=== PATIENT | male | born 1940 | race Caucasian/White ===

== ENCOUNTER → 2017-12-21 | Emergency (ER) | payer OTHER ==
[~2017-12-21] VITALS: Ht 170.2 cm; Wt 80.3 kg
[~2017-12-21] MED LIST: ENALAPRIL MALEA20 MG; IBUPROFEN200 M1; IBUPROFEN800 MG PO; SKELAXIN800 MG PO
== END | disposition home or self-care (01) ==
LOC: ER 09:46
DX: S00.83XA Contusion of other part of head, initial encounter (principal); W22.8XXA Striking against or struck by other objects, initial encounter; Y93.89 Activity, other specified; Y92.89 Other specified places as the place of occurrence of the external cause; Y99.8 Other external cause status

== ENCOUNTER 2018-02-09 13:46 | Emergency (ER) | payer OTHER ==
[~2018-02-09] VITALS: Ht 165.1 cm; Wt 74.8 kg
[2018-02-09] MEDS ORDERED: BACLOFEN20 MG PO (14:50)
== END 2018-02-09 15:03 | disposition home or self-care (01) ==
LOC: ER 13:46
DX: M54.5 Low back pain (principal)

== ENCOUNTER → 2018-02-22 | Emergency (ER) | payer OTHER ==
[~2018-02-22] VITALS: Ht 175.3 cm; Wt 76.7 kg
[~2018-02-22] MED LIST changes: +BACLOFEN20 MG PO
== END | disposition home or self-care (01) ==
LOC: ER 13:16
DX: M54.2 Cervicalgia (principal)

== ENCOUNTER → 2018-03-08 | Emergency (ER) | payer OTHER ==
[~2018-03-08] VITALS: Ht 160 cm; Wt 76.2 kg
[~2018-03-08] MED LIST changes: +TUSSI-PRES LIQ118 ML PO
== END | disposition home or self-care (01) ==
LOC: ER 14:26
DX: R05 Cough (principal)

== ENCOUNTER 2018-03-23 09:11 | Emergency (ER) | payer OTHER ==
[~2018-03-23] VITALS: Ht 175.3 cm; Wt 76.2 kg
[2018-03-23] MEDS ORDERED: LISINOPRIL20 MG (09:57)
[2018-03-23] MEDS ORDERED: TAMS0.4C (09:58)
== END 2018-03-23 12:45 | disposition home or self-care (01) ==
LOC: ER 09:11
DX: N50.811 Right testicular pain (principal)

== ENCOUNTER 2018-03-27 10:09 | Emergency (ER) | payer OTHER ==
[~2018-03-27] VITALS: Ht 172.7 cm; Wt 76.7 kg
[~2018-03-27 10:09] MED LIST changes: +LISINOPRIL20 MG; +TAMS0.4C
== END 2018-03-27 11:42 | disposition home or self-care (01) ==
LOC: ER 10:09
DX: M25.562 Pain in left knee (principal); M25.561 Pain in right knee; M17.0 Bilateral primary osteoarthritis of knee

== ENCOUNTER 2018-04-12 09:44 | Emergency (ER) | payer OTHER ==
[~2018-04-12] VITALS: Ht 177.8 cm; Wt 81.6 kg
[2018-04-12] MEDS ORDERED: ALEVE220 MG PO (14:24)
== END 2018-04-12 14:31 | disposition home or self-care (01) ==
LOC: ER 09:44
DX: M13.862 Other specified arthritis, left knee (principal); M13.861 Other specified arthritis, right knee

== ENCOUNTER 2018-04-24 12:03 | Emergency (ER) | payer OTHER ==
[~2018-04-24] VITALS: Ht 175.3 cm; Wt 86.2 kg
[~2018-04-24 12:03] MED LIST changes: +ALEVE220 MG PO
== END 2018-04-24 14:30 | disposition home or self-care (01) ==
LOC: ER 12:03
DX: R51 Headache (principal)

== ENCOUNTER 2018-06-09 14:27 | Emergency (ER) | payer OTHER ==
[~2018-06-09] VITALS: Ht 175.3 cm; Wt 76.7 kg
== END 2018-06-09 17:19 | disposition home or self-care (01) ==
LOC: ER 14:27
DX: B35.6 Tinea cruris (principal)

== ENCOUNTER 2018-07-21 08:32 | Emergency (ER) | payer OTHER ==
[~2018-07-21] VITALS: Ht 152.4 cm; Wt 76.7 kg
[2018-07-21] MEDS ORDERED: DICLOFENAC SODI50 MG PO (09:32)
== END 2018-07-21 09:47 | disposition home or self-care (01) ==
LOC: ER 08:32
DX: M25.562 Pain in left knee (principal); M25.561 Pain in right knee

== ENCOUNTER 2018-07-30 12:33 | Emergency (ER) | payer OTHER ==
[~2018-07-30] VITALS: Ht 175.3 cm; Wt 76.7 kg
[~2018-07-30 12:33] MED LIST changes: +DICLOFENAC SODI50 MG PO
== END 2018-07-30 14:58 | disposition home or self-care (01) ==
LOC: ER 12:33
DX: G89.29 Other chronic pain (principal); M79.605 Pain in left leg; M79.604 Pain in right leg

== ENCOUNTER 2019-01-06 12:02 | Emergency (ER) | payer OTHER ==
[~2019-01-06] VITALS: Ht 175.3 cm; Wt 76.2 kg
== END 2019-01-06 13:57 | disposition home or self-care (01) ==
LOC: ER 12:02
DX: L02.31 Cutaneous abscess of buttock (principal)

== ENCOUNTER 2020-02-17 13:27 | Emergency (ER) | payer OTHER ==
[~2020-02-17] VITALS: Ht 175.3 cm; Wt 76.7 kg
== END 2020-02-17 22:27 | disposition home or self-care (01) ==
LOC: ER 13:27 → CPU-OBS 13:29 → ER 13:29
DX: R07.89 Other chest pain (principal)
CPT/HCPCS: 93005; G0378; G0379

== ENCOUNTER 2020-11-27 18:44 | Emergency (ER) | payer OTHER ==
[~2020-11-27] VITALS: Ht 175.3 cm; Wt 77.1 kg
[2020-11-27] MEDS ORDERED: NEURONTIN300 MG (20:19)
[2020-11-27] MEDS ORDERED: FINASTERIDE5 MG (20:21)
[2020-11-28] MEDS ORDERED: VOLTAREN100 GM TOP (10:30)
[2020-11-28] MEDS ORDERED: CELEBREX100 MG PO (10:30)
== END 2020-11-28 10:42 | disposition home or self-care (01) ==
LOC: ER 18:44
DX: M17.0 Bilateral primary osteoarthritis of knee (principal); M62.81 Muscle weakness (generalized); Z60.2 Problems related to living alone

== ENCOUNTER 2021-03-13 13:45 | Emergency (ER) | payer OTHER ==
[~2021-03-13] VITALS: Ht 167.6 cm; Wt 70.3 kg
[~2021-03-13 13:45] MED LIST changes: +CELEBREX100 MG PO; +FINASTERIDE5 MG; +NEURONTIN300 MG; +VOLTAREN100 GM TOP
== END 2021-03-13 16:54 | disposition home or self-care (01) ==
LOC: ER 13:45
DX: M25.562 Pain in left knee (principal); M25.561 Pain in right knee

== ENCOUNTER 2021-07-09 09:08 | Emergency (ER) | payer OTHER ==
[~2021-07-09] VITALS: Ht 175.3 cm; Wt 76.7 kg
== END 2021-07-09 10:05 | disposition home or self-care (01) ==
LOC: ER 09:08
DX: M17.11 Unilateral primary osteoarthritis, right knee (principal); M17.12 Unilateral primary osteoarthritis, left knee

== ENCOUNTER 2022-06-16 15:28 | Emergency (ER) | payer OTHER ==
[~2022-06-16] VITALS: Ht 381 cm; Wt 76.7 kg
== END 2022-06-16 19:34 | disposition home or self-care (01) ==
LOC: ER 15:28
DX: M17.0 Bilateral primary osteoarthritis of knee (principal); I10 Essential (primary) hypertension

== ENCOUNTER 2023-07-15 16:05 | Emergency (ER) | payer OTHER ==
[~2023-07-15] VITALS: Ht 175.3 cm; Wt 76.7 kg
[2023-07-15] MEDS ORDERED: PROPRANOLOL HCL10 MG PO (16:51)
== END 2023-07-15 17:49 | disposition home or self-care (01) ==
LOC: ER 16:05
DX: M54.9 Dorsalgia, unspecified (principal); M25.561 Pain in right knee; M25.562 Pain in left knee